=== PATIENT | male | born 1970 ===

== ENCOUNTER 2020-11-23 13:23 | Emergency (ER) | payer OTHER ==
[~2020-11-23] VITALS: Ht 180.3 cm; Wt 86.6 kg
[2020-11-23] MEDS ORDERED: ACID REDUCER20 M1 (13:57)
== END 2020-11-23 16:24 | disposition home or self-care (01) ==
LOC: ER 13:23
DX: S80.811A Abrasion, right lower leg, initial encounter (principal); W26.8XXA Contact with other sharp object(s), not elsewhere classified, initial encounter; Y93.55 Activity, bike riding; Y92.838 Other recreation area as the place of occurrence of the external cause; Y99.8 Other external cause status